=== PATIENT | female | born 1960 | race Caucasian/White ===

== ENCOUNTER 2018-02-27 16:44 | Emergency (ER) | payer BC ==
--- NOTE | 2018-02-27 18:06 | RAD ---
RIGHT HAND 3 VIEWS: Date: 02/27/18 HISTORY: Pain. COMPARISON: None. FINDINGS: There is mild medial and dorsal soft tissue swelling. No acute displaced fracture or malalignment. IMPRESSION: Moderate dorsal and medial soft tissue swelling. No acute fracture. POS: [facility]
== END 2018-02-27 18:04 | disposition home or self-care (01) ==
LOC: MADERS 16:44
DX: S60.221A Contusion of right hand, initial encounter (principal); F41.9 Anxiety disorder, unspecified; F32.9 Major depressive disorder, single episode, unspecified; I10 Essential (primary) hypertension; W01.198A Fall on same level from slipping, tripping and stumbling with subsequent striking against other object, initial encounter